=== PATIENT | male | born 1990 | race Native Hawaiian/Other Pacific Islander ===

== ENCOUNTER 2018-05-05 12:34 | Emergency (ER) | payer OTHER ==
[~2018-05-05] VITALS: Ht 167.6 cm; Wt 102.1 kg
[2018-05-05 16:19] LABS: PLATELET COUNT 285 K/uL (142-355)
[2018-05-05 16:37] LABS: POTASSIUM 3.7 mmol/L (3.6-5.2)
[2018-05-05 18:11] VITALS: BP 118/72; TEMP 98.6
== END 2018-05-05 18:11 | disposition home or self-care (01) ==
LOC: ED 12:34
PROVIDERS: Family Medicine
DX: J45.901 Unspecified asthma with (acute) exacerbation (principal)
CPT/HCPCS: 80053; 85027; 94664; 96360; 96374; 99284; J2930

== ENCOUNTER 2018-10-27 11:07 | Emergency (ER) | payer OTHER ==
[~2018-10-27] VITALS: Ht 167.6 cm; Wt 102.1 kg
[2018-10-27] MEDS ORDERED: ALBUTEROL0.083 % INH (11:18)
[2018-10-27 11:45] VITALS: BP 141/87; TEMP 98.2
== END 2018-10-27 11:45 | disposition home or self-care (01) ==
LOC: ED 11:07
DX: J45.901 Unspecified asthma with (acute) exacerbation (principal); B34.9 Viral infection, unspecified
CPT/HCPCS: 99282

== ENCOUNTER 2021-06-06 00:57 | Emergency (ER) | payer OTHER ==
[~2021-06-06] VITALS: Ht 165.1 cm; Wt 108.9 kg
[~2021-06-06 00:57] MED LIST: ALBUTEROL0.083 % INH
[2021-06-06 02:25] VITALS: BP 132/78; TEMP 97.6
== END 2021-06-06 02:25 | disposition home or self-care (01) ==
LOC: ED 00:57
DX: S50.12XA Contusion of left forearm, initial encounter (principal); S50.02XA Contusion of left elbow, initial encounter; S40.012A Contusion of left shoulder, initial encounter; S40.022A Contusion of left upper arm, initial encounter; S60.222A Contusion of left hand, initial encounter; V28.0XXA Motorcycle driver injured in noncollision transport accident in nontraffic accident, initial encounter; Y92.89 Other specified places as the place of occurrence of the external cause
CPT/HCPCS: 99283; J1885

== ENCOUNTER 2021-11-09 15:13 | Emergency (ER) | payer OTHER ==
[~2021-11-09] VITALS: Ht 165.1 cm; Wt 81.6 kg
[2021-11-09 15:15] VITALS: BP 167/87; TEMP 98.3
== END 2021-11-09 16:45 | disposition home or self-care (01) ==
LOC: ED 15:13
DX: Z53.21 Procedure and treatment not carried out due to patient leaving prior to being seen by health care provider (principal)
CPT/HCPCS: 99281